=== PATIENT | female | born 1990 | race Caucasian/White ===

== ENCOUNTER → 2018-12-05 | Outpatient (CLI) | payer BC, OTHER ==
--- NOTE | 2018-12-05 18:24 | Diagnostic Imaging Report ---
INDICATION: patient with vaginal spotting. TECHNIQUE: OB sonography performed with transabdominal views. FINDINGS: A single live intrauterine fetus is seen with gestational age 7 weeks 5 days by crown-rump length. There is no evidence of subchorionic bleed. A normal-appearing yolk sac is visualized. heart rate was 167 beats per minute. Gestational sac had a normal shape. The right ovary was not well seen due to overlying bowel gas. Left ovary contains blood flow and measured 4.2 x 3.1 x 4.9 cm. There is a 2.3 x 2.3 x 2.1 cm cyst in the left ovary as well as a smaller 1.4 x 1.2 cm cyst. There is no free fluid. IMPRESSION: Single live intrauterine fetus measuring 7 weeks 5 days by crown-rump length with no evidence of subchorionic bleed. There is no free fluid. There are couple of cysts in the left ovary. Right ovary could not be visualized. Suggest followup, as clinically warranted. Dictated by: Dictated on workstation # [id number]
== END ==
LOC: RAD 14:34
PROVIDERS: ATTEND Obstetrics & Gynecology
DX: O34.81 Maternal care for other abnormalities of pelvic organs, first trimester (principal); O26.851 Spotting complicating pregnancy, first trimester; N83.292 Other ovarian cyst, left side; O09.291 Supervision of pregnancy with other poor reproductive or obstetric history, first trimester; Z3A.01 Less than 8 weeks gestation of pregnancy
CPT/HCPCS: 76801

== ENCOUNTER → 2021-01-17 | Outpatient (CLI) | payer BC, OTHER ==
--- NOTE | 2021-01-17 16:18 | Diagnostic Imaging Report ---
INDICATION: patient, survey. TECHNIQUE: Multiple real-time grayscale images were obtained over the gravid uterus. COMPARISON: None during this . FINDINGS: A single live intrauterine fetus is seen measuring 19 weeks 3 days by composite measurements. Cervical length was 3.2 cm. The distance from the internal os to the placental tip was 3.6 cm. Placenta is posterior with no evidence of previa. Amniotic fluid index is normal at 14.42 cm. The fetus is in variable presentation. There is no evidence of subchorionic bleed. Maternal adnexa could not be visualized. survey demonstrated normal-appearing kidneys and bladder and stomach. Normal-appearing intracranial ventricles are seen. Normal-appearing four-chamber heart view and spine were seen. Three-vessel cord is seen, cord insertion is not well visualized. Biometrical measurements are as follows: Biparietal 4.43 cm, age 19 weeks 3 days. Head circumference 16.43 cm, age 19 weeks 2 days. Abdominal circumference 14.13 cm, age 19 weeks 7 days. Femur length 2.98 cm, age 19 weeks 2 days. Sonographic estimate age: 19 weeks 3 days. Sonographic estimated date of delivery: 06/10/2021. Estimated Weight: 287 gm (+/- 42 gm). LMP percentile: 58%. heart rate: 149 beats per minute. number: 1 of 1. IMPRESSION: Single live intrauterine fetus measuring 19 weeks 3 days in size. There was no detectable abnormality, although cord insertion was not well visualized. Consider limited follow-up if clinically warranted. Dictated by: Dictated on workstation # [id number]
== END ==
LOC: RAD 14:24
PROVIDERS: ATTEND Nurse Practitioner Women's Health
DX: Z36.89 Encounter for other specified antenatal screening (principal); Z3A.19 19 weeks gestation of pregnancy
CPT/HCPCS: 76805

== ENCOUNTER 2021-05-30 14:35 | Inpatient (IN) | payer BC ==
[~2021-05-30] VITALS: Ht 157.5 cm; Wt 80.0 kg
[2021-05-30] VITALS (14 sets, daily range): BP systolic 94–125; BP diastolic 48–65
[2021-05-30 15:10] LABS: BILIRUBIN,URINE NEGATIVE (NEGATIVE); CLARITY,URINE SL CLOUDY; COLOR,URINE YELLOW; GLUCOSE, URINE (UA) NEGATIVE (NEGATIVE); KETONES,URINE 2+ (NEGATIVE); LEUKOCYTE ESTERASE ,URINE TRACE (NEGATIVE); NITRITE,URINE NEGATIVE (NEGATIVE); PH,URINE 6.5 (5-9); PROTEIN,URINE NEGATIVE (NEGATIVE)
[2021-05-30 15:29] LABS: BASOPHILS % (AUTO) 0 % (0-10); EOSINOPHILS % (AUTO) 0 % (0-10); HEMATOCRIT 33 % (35-52); HEMOGLOBIN 10.9 g/dL (11.5-16.0); LYMPHOCYTES # (AUTO) 0.8 10^3/uL (1.0-4.0); LYMPHOCYTES % (AUTO) 15 % (12-44); MEAN CORPUSCULAR HEMOGLOBIN 32 pg (25-34); MEAN CORPUSCULAR HGB CONC 33 g/dL (32-36); MEAN CORPUSCULAR VOLUME 96 fL (80-99); MEAN PLATELET VOLUME 10.3 fL (9.0-12.2); MONOCYTES # (AUTO) 0.6 10^3/uL (0.0-1.0); MONOCYTES % (AUTO) 11 % (0-12); NEUTROPHILS # (AUTO) 3.6 10^3/uL (1.8-7.8); NEUTROPHILS % (AUTO) 71 % (42-75); PLATELET COUNT 130 10^3/uL (130-400); WHITE BLOOD COUNT 5.1 10^3/uL (4.3-11.0)
[2021-05-30 15:36] LABS: BACTERIA,URINE TRACE /HPF
[2021-05-30 16:26] LABS: ALBUMIN 3.3 GM/DL (3.2-4.5); BILIRUBIN,TOTAL 0.3 MG/DL (0.1-1.0); CALCIUM 8.4 MG/DL (8.5-10.1); CREATININE SERUM 0.7 MG/DL (0.60-1.30); POTASSIUM 3.6 MMOL/L (3.6-5.0); TOTAL PROTEIN 5.6 GM/DL (6.4-8.2)
[2021-05-30] MEDS ORDERED: fentaNYL 2 mcg/ml BUPIVA 0.125 100 ML ONE (17:13)
[2021-05-30] MEDS ORDERED: D5 LR IV SOLUTION 1,000 ML IV SCH (17:45)
[2021-05-30] MEDS ORDERED: fentaNYL INJ 100 MCG/2 ML AMP ONE (18:10)
[2021-05-30] MEDS ORDERED: PREN-37 PO (18:19)
[2021-05-30] MEDS ORDERED: FERR-84 PO (18:20)
--- NOTE | 2021-05-30 18:40 | History & Physical ---
History and Physical Date Seen by Provider: May 30, 2021 Time Seen by Provider: 18:38 This patient is a 30-year-old 2 para 1 female who presents at 38+ weeks gestation with complaint of temperature of 100. She does states she is having some contractions denies rupture membranes or bleeding has had no problems with this and had GBS culture that was negative. On initial evaluation her cervix was almost 5 cm dilated on repeat check an hour later she was passed 6 cm dilated. She is mitchell every minute or 2Was uncomfortable to the point where she requested an epidural which has now been placed. Allergies are none Medications are vitamins Medical social and surgical history is all per the antepartum record HEENT exam is normal Neck is supple no lymphadenopathy no thyromegaly Abdomen is gravid soft nontender nondistended Extremities show no clubbing or cyanosis. There is no Homans' sign. Pelvic exam shows a cervix that is 7 cm dilated multiparous flexible soft cervix is 50% effaced. The presenting part is the vertex at a 0 station. Amniotomy is performed releasing clear fluid. Laboratory Tests Test 05/30/21 14:55 05/30/21 15:18 Range/Units Urine Color YELLOW Urine Clarity SL CLOUDY Urine pH 6.5 5-9 Urine Specific [place] 1.020 1.016-1.022 Urine Protein NEGATIVE NEGATIVE Urine Glucose (UA) NEGATIVE NEGATIVE Urine Ketones 2+ H NEGATIVE Urine Nitrite NEGATIVE NEGATIVE Urine Bilirubin NEGATIVE NEGATIVE Urine Urobilinogen 1.0 < = 1.0 MG/DL Urine Leukocyte Esterase TRACE H NEGATIVE Urine RBC (Auto) NEGATIVE NEGATIVE Urine RBC NONE /HPF Urine WBC 2-5 /HPF Urine Squamous Epithelial Cells 5-10 /HPF Urine Crystals NONE /LPF Urine Bacteria TRACE /HPF Urine Casts NONE /LPF Urine Mucus SMALL H /LPF Urine Culture Indicated NO White Blood Count 5.1 4.3-11.0 10^3/uL Red Blood Count 3.41 L 3.80-5.11 10^6/uL Hemoglobin 10.9 L 11.5-16.0 g/dL Hematocrit 33 L 35-52 % Mean Corpuscular Volume 96 80-99 fL Mean Corpuscular Hemoglobin 32 25-34 pg Mean Corpuscular Hemoglobin Concent 33 32-36 g/dL Red Cell Distribution Width 14.1 10.0-14.5 % Platelet Count 130 130-400 10^3/uL Mean Platelet Volume 10.3 9.0-12.2 fL Immature Granulocyte % (Auto) 2 % Neutrophils (%) (Auto) 71 42-75 % Lymphocytes (%) (Auto) 15 12-44 % Monocytes (%) (Auto) 11 0-12 % Eosinophils (%) (Auto) 0 0-10 % Basophils (%) (Auto) 0 0-10 % Neutrophils # (Auto) 3.6 1.8-7.8 10^3/uL Lymphocytes # (Auto) 0.8 L 1.0-4.0 10^3/uL Monocytes # (Auto) 0.6 0.0-1.0 10^3/uL Eosinophils # (Auto) 0.0 0.0-0.3 10^3/uL Basophils # (Auto) 0.0 0.0-0.1 10^3/uL Immature Granulocyte # (Auto) 0.1 0.0-0.1 10^3/uL Sodium Level 139 135-145 MMOL/L Potassium Level 3.6 3.6-5.0 MMOL/L Chloride Level 109 H 98-107 MMOL/L Carbon Dioxide Level 18 L 21-32 MMOL/L Anion Gap 12 5-14 MMOL/L Blood Urea Nitrogen 6 L 7-18 MG/DL Creatinine 0.70 0.60-1.30 MG/DL Estimat Glomerular Filtration Rate 100 BUN/Creatinine Ratio 9 Glucose Level 83 70-105 MG/DL Calcium Level 8.4 L 8.5-10.1 MG/DL Corrected Calcium 9.0 8.5-10.1 MG/DL Total Bilirubin 0.3 0.1-1.0 MG/DL Aspartate Amino Transf (AST/SGOT) 22 5-34 U/L Alanine Aminotransferase (ALT/SGPT) 23 0-55 U/L Alkaline Phosphatase 190 H 40-136 U/L Total Protein 5.6 L 6.4-8.2 GM/DL Albumin 3.3 3.2-4.5 GM/DL Labs are normal Assessment and plan 38-week in labor. Patient reports elevated temperature and we do not find that here. She also reports that she was tested for Covid within the last 24 hours and that was negative Patient has an epidural now and amniotomy has been performed. We anticipate a vaginal delivery 38 weeks in active labor Allergies and Home Medications Allergies Coded Allergies: No Known Drug Allergies (Unverified , 05/30/21) Home Medications Ferrous Sulfate 325 Mg Tablet, 325 MG PO DAILY, (Reported) Last Action: New Order Vit/Iron Fumarate/FA 1 Each Tablet, 1 EACH PO DAILY, (Reported) Last Action: New Order Patient Home Medication List Home Medication List Reviewed: Yes CLARITA DUNBAR MD May 30, 2021 18:40
[2021-05-30] MEDS ORDERED: OXYTOCIN PRE-MIX DRIP 500 ML IV SCH ×3 (18:45→21:30)
[2021-05-30] MEDS ORDERED: DOCU-143 PO (18:51)
[2021-05-30] MEDS ORDERED: OXYC1TAB87 PO (18:51)
[2021-05-30] MEDS ORDERED: IBUP-1780 PO (18:51)
--- NOTE | 2021-05-30 18:54 | Discharge Inst-Surgical ---
Discharge Inst-Surgical Depart Medication/Instructions New, Converted or Re-Newed RX: Transmitted to Pharmacy Consults/Follow Up Patient Instructions: As directed Orders & Referrals Follow Up Appt: Call to make follow up appt. for patient in [address] Osullivan. Activity Per routine post vaginal delivery instructions. Diet as tolerated Patient may shower or tub bathe as desired. Activity Activity as Tolerated: No Diet Discharge Diet: No Restrictions CLARITA DUNBAR MD May 30, 2021 18:54
[2021-05-30] MEDS ORDERED: CATHETER FLUSH 10 ML SYR IV PRN (19:45)
[2021-05-30] MEDS ORDERED: fentaNYL 2 mcg/ml BUPIVA 0.125 100 ML IV SCH (19:45)
[2021-05-30] MEDS ORDERED: fentaNYL INJ 100 MCG/2 ML AMP INJ ONE (19:45)
[2021-05-30] MEDS ORDERED: LACTATED RINGERS 1,000 ML IV ONE (19:45)
[2021-05-30] MEDS ORDERED: NALOXONE 0.4 MG/ML 1 ML (NARCAN) VIAL IV PRN (19:45)
[2021-05-30] MEDS ORDERED: LIDOCAINE 1% INJ 20 ML 20 ML VIAL ONE (20:01)
[2021-05-30] MEDS ORDERED: LIDOCAINE/EPI 2% 1:200,00 (XYLOCAINE) 20 ML VIAL ONE (20:02)
[2021-05-30] MEDS ORDERED: LACTATED RINGERS 1,000 ML IV SCH (20:45)
[2021-05-30] MEDS ORDERED: MEASLES,MUMPS,RUBELLA 1 EA INJ SC ONE (21:30)
[2021-05-30] MEDS ORDERED: TETANUS,DIPTH,PERTUSS P/F (BOOSTRIX) 0.5 ML VIAL IM ONE (21:30)
[2021-05-30] MEDS ORDERED: BENZOCAINE/MENTHOL (DERMOPLAST) 56 ML CAN TP PRN (21:30)
[2021-05-30] MEDS ORDERED: fentaNYL INJ 100 MCG/2 ML AMP IVP PRN (21:30)
[2021-05-30] MEDS ORDERED: oxyCODONE/APAP 5/325MG (PERCOCET 5) TABLET PO PRN (21:30)
[2021-05-30] MEDS ORDERED: ONDANSETRON 4 MG/2 ML (SDV) Z0FRAN IVP PRN (21:30)
[2021-05-30] MEDS ORDERED: KETOROLAC 30 MG/ML VIAL ONE (21:44)
[2021-05-30] MEDS: KETOROLAC 30 MG/ML VIAL IVP SCH (21:51)
[2021-05-30] MEDS ORDERED: CATHETER FLUSH 10 ML SYR IV SCH (22:00)
--- NOTE | 2021-05-30 23:06 | OPERATIVE REPORT ---
DATE OF SERVICE: 05/30/2021 DELIVERY NOTE The patient delivered by term spontaneous vaginal delivery at 38 weeks gestation, a viable male infant with Apgars of 8 and 9 at 1 and 5 minutes respectively. Weight is 7 pounds 7 ounces. Cord blood pH of 7.36 and a time of 1953. The was delivered over a second-degree perineal laceration under epidural analgesia. The was bulb suctioned on delivery of the head and then suctioned again on completion of delivery. The umbilical cord when pulseless was doubly clamped, father cut the cord, the baby was passed to mom's abdomen. Cord bloods were obtained. The placenta delivered spontaneously [place]. It was a battledore placenta with a 3-vessel cord. Cervix, vagina, rectum, and perineum were examined and found intact, except for a second-degree perineal laceration that was repaired with a single suture of 3-0 Vicryl Rapide in the usual manner without difficulty. Sponge and needle counts were correct on completion of the delivery and the repair. Blood loss was around 200 mL. The patient tolerated the delivery and the repair well and remained in the LDR for recovery. The baby remained with the mom. Job ID: [id number] DocumentID: [id number] Dictated Date: 05/30/2021 20:16:02 Certified Personal Trainer Date: 05/30/2021 23:06:06 Dictated By: CLARITA DUNBAR MD [facility]
[2021-05-31 02:16] VITALS: BP 101/63
[2021-05-31] MEDS: KETOROLAC 30 MG/ML VIAL IVP SCH (04:58)
[2021-05-31 05:02] VITALS: BP 103/68
[2021-05-31 08:00] VITALS: BP 97/60
[2021-05-31] MEDS ORDERED: DOCUSATE SODIUM 100 MG (COLACE) CAP PO SCH (09:00)
--- NOTE | 2021-05-31 10:05 | Progress Note ---
Standard Progress Note Progress Notes/Assess & Plan Date Seen by a Provider: May 31, 2021 Time Seen by a Provider: 10:04 Progress/Assessment & Plan This patient is without complaint. She is ambulating, voiding, tolerating oral intake well and has good pain control. Vital Signs Date Time Temp Pulse Resp B/P (MAP) Pulse Ox O2 Delivery O2 Flow Rate FiO2 05/31/21 05:02 37.1 91 18 103/68 (80) 98 Room Air 05/31/21 02:16 36.6 90 20 101/63 (76) 98 Room Air 05/30/21 22:06 37.0 109 18 94/51 (65) 98 Room Air 05/30/21 21:51 108 18 103/60 (74) 97 Room Air 05/30/21 21:36 102 18 102/56 (71) 98 Room Air 05/30/21 21:21 105 18 101/58 (72) 97 Room Air 05/30/21 21:06 110 18 99/55 (70) 97 Room Air 05/30/21 20:51 121 18 111/55 (73) 97 Room Air 05/30/21 20:36 122 18 114/51 (72) 97 Room Air 05/30/21 20:21 37.3 115 18 103/54 (70) 100 Room Air 05/30/21 20:06 121 18 99/48 (65) 100 Room Air 05/30/21 19:54 144 18 125/58 (80) 100 Room Air 05/30/21 19:36 110 18 99/60 (73) 99 Room Air 05/30/21 19:22 107 18 95/59 (71) 97 Room Air 05/30/21 19:05 36.8 108 18 94/58 (70) 97 Room Air 05/30/21 17:26 37.2 05/30/21 14:50 37.1 114 18 100/65 (77) Room Air I & O 05/31/21 07:00 Intake Total 1000 ml Balance 1000 ml Vital signs are stable. Patient is afebrile. Fundus is firm below the umbilicus and nontender. Extremities show no clubbing or cyanosis. No Homans' sign. Assessment and plan day #1 status post term spontaneous vaginal therapy doing well. Plan is for routine convalescent care with discharge home today or tomorrow as patient preferred Final Diagnosis 38-week spontaneous vaginal lip CLARITA DUNBAR MD May 31, 2021 10:05
--- NOTE | 2021-05-31 11:25 | Anesthesia-Regional Post-Op ---
Regional Patient Condition Mental Status: Alert, Oriented x3 Circulation: Same as Pre-Op Headache: Absent Sensation: Full Recovery Motor Block: Absent Post Op Complications Complications None Follow Up Care/Instructions Patient Instructions None needed. Anesthesia/Patient Condition Patient is doing well, no complaints, stable vital signs, no apparent adverse anesthesia problems. No complications reported per nursing. ANTELMO DAWN CRNA May 31, 2021 11:25
[2021-05-31] MEDS: IBUPROFEN 800 MG (MOTRIN) TAB PO SCH ×2 (11:32→14:51)
[2021-05-31] MEDS ORDERED: OXYC1TAB87 PO (15:56)
[2021-05-31] MEDS ORDERED: DCS100C PO (15:56)
[2021-05-31] MEDS ORDERED: BENZ78AE5 TP (15:56)
[2021-05-31] MEDS ORDERED: IBUP-1780 PO (15:56)
== END 2021-05-31 15:45 | disposition home or self-care (01) | DRG 807 ==
LOC: WSo 14:35 → LDRP 14:37 → WSo 16:50 → LDRP 22:30
PROVIDERS: ADMIT Obstetrics & Gynecology; ATTEND Obstetrics & Gynecology
PROC: 10E0XZZ Delivery of Products of Conception, External Approach (ICD-10-PCS; principal; 2021-05-30)
PROC: 0KQM0ZZ Repair Perineum Muscle, Open Approach (ICD-10-PCS; 2021-05-30)
DX: O70.1 Second degree perineal laceration during delivery (principal); Z37.0 Single live birth; Z3A.38 38 weeks gestation of pregnancy
CPT/HCPCS: 36415; 80053; 81000; 85025; 99212